=== PATIENT | male | born 1960 | race Caucasian/White ===

== ENCOUNTER 2023-03-01 14:02 | Emergency (ER) | payer MEDICARE ==
[2023-03-01] MEDS ORDERED: Sodium Chloride 0.9% 10 ML Syringe FLUSH PRN (14:14)
[2023-03-01 14:20] LABS: BASOPHILS ABSOLUTE AUTO 0.03 K/mm3 (0.01-0.08); BASOPHILS PERCENT AUTO 0.4 % (0.1-1.2); EOSINOPHILS ABSOLUTE AUTO 0.31 K/mm3 (0.04-0.54); EOSINOPHILS PERCENT AUTO 3.8 (0.8-7.0); HEMATOCRIT 44.9 % (40.1-51.0); HEMOGLOBIN 14.7 gm/dl (13.7-17.5); IMMATURE GRAN ABSOLUTE AUTO 0.01 K/mm3 (0.00-0.10); IMMATURE GRAN PERCENT AUTO 0.1 % (<=1.0); LYMPHOCYTES ABSOLUTE AUTO 1.64 K/mm3 (1.32-3.57); LYMPHOCYTES PERCENT AUTO 19.9 % (21.8-53.1); MEAN CORPUSCULAR HEMOGLOBIN 30.6 pg (25.7-32.2); MEAN CORPUSCULAR HGB CONC 32.7 g/dl (32.2-35.5); MEAN CORPUSCULAR VOLUME 93.5 fl (79.0-92.2); MEAN PLATELET VOLUME 9.6 fl (9.4-12.3); MONOCYTES ABSOLUTE AUTO 0.88 K/mm3 (0.30-0.82); MONOCYTES PERCENT AUTO 10.7 % (5.3-12.2); NEUTROPHILS ABSOLUTE AUTO 5.36 K/mm3 (1.78-5.38); NEUTROPHILS PERCENT AUTO 65.1 % (34.0-67.9); PLATELET COUNT,PLT 317 K/mm3 (163-337); WHITE BLOOD CELL COUNT,WBC 8.23 K/mm3 (4.23-9.07)
[2023-03-01 14:37] LABS: D-DIMER QUANTITATIVE 0.38 mg/L (0.19-0.50); INR 1.16; PROTHROMBIN TIME 12.3 SECONDS (9.7-12.0)
[2023-03-01 14:47] LABS: A/G RATIO 0.8 (1-2); ALBUMIN 3.6 g/dl (3.4-5.0); ANION GAP 12.2 (5-15); BILIRUBIN TOTAL 0.4 mg/dL (0.2-1.0); BUN/CREATININE RATIO 14.4 (14-18); CALCIUM 9.3 mg/dL (8.5-10.1); CREATININE 0.9 mg/dL (0.7-1.3); EST CRCL DRUG DOSING (CG) 96.18 mL/min; POTASSIUM,K 4.2 mEq/L (3.5-5.1); PROTEIN TOTAL,TP 7.9 g/dl (6.4-8.2)
== END 2023-03-01 18:23 | disposition home or self-care (01) ==
LOC: JD.ED 14:02
DX: R07.89 Other chest pain (principal); I25.2 Old myocardial infarction; F17.210 Nicotine dependence, cigarettes, uncomplicated; Z79.899 Other long term (current) drug therapy
CPT/HCPCS: 36415; 71045; 80053; 83735; 83880; 84484; 85025; 85379; 85610; 93005; 99285; J3490